=== PATIENT | female | born 1950 | race Caucasian/White ===

== ENCOUNTER 2018-07-09 07:56 | Day surgery (SDC) | payer MEDICARE, OTHER ==
[~2018-07-09 07:56] MED LIST: Acetaminophen TAB* 325 MG PO PRN; Buffered Lidocaine 1% SYRIN* 1 ML/SYRINGE INTRADERM ONE
[2018-07-09] MEDS ORDERED: Midazolam* 1 MG/ML 2 ML VIAL (2 MG) ONE ×2 (08:37→09:20)
[2018-07-09] MEDS ORDERED: fentaNYL* 50 MCG/ML 2 ML VIAL (100 MCG VIAL) ONE (08:37)
[2018-07-09 09:55] VITALS: BP 126/79
--- NOTE | 2018-07-09 10:35 | OP ---
DATE OF OPERATION: 07/09/18 - [facility] DATE OF : 46 SURGEON: Jim Carreon MD JAVA PER[employer]MANCE ENGINEER: None. PRE-OP DIAGNOSIS: Cataract with astigmatism, left eye. POST-OP DIAGNOSIS: Cataract with astigmatism, left eye. OPERATIVE PROCEDURE: Phacoemulsification cataract extraction with posterior chamber toric intraocular lens implant, left eye. COMPLICATIONS: None. BLOOD LOSS: None. ANESTHESIA: Topical with intravenous sedation. DESCRIPTION OF PROCEDURE: The patient was seen preoperatively in the holding area where she was placed in an upright position and a deysi was made at the 6 o' clock position of the limbus of the left eye with a marker. The patient was subsequently brought to the operating room. Here, she was given intravenous sedation as well as a drop of tetracaine to the left eye. The patient was prepped and draped in the usual sterile fashion for ophthalmic surgery and attention was directed to the left eye where a speculum was placed. A paracentesis was created at the 5 o'clock position and 0.1 cc of 1% preservative -free lidocaine was injected into the anterior chamber followed by DisCoVisc. The eye was digitally stabilized while a 2.75 mm keratome was used to create a triplanar clear corneal incision at the 3 o'clock position. A continuous curvilinear capsulorrhexis was created with a cystotome and Utrata forceps. BSS on the cannula was used to hydrodissect the lens from the capsule. Phacoemulsification was performed in a [id number] technique to create 4 fragments which were removed. Residual cortical material was removed with irrigation and aspiration. ProVisc was used to inflate the capsular bag and then create a pressure in the eye that was measurable by the tonometer as appropriate for the ORA machine. The ORA machine was employed and we made a lens recommendation. A small change was made to the original lens recommendation. An [id number] diopter lens was opened. It was inserted into the eye and dialed to the appropriate axial alignment of 86 degrees. The ORA was reemployed to confirm the axial rotation was correct. The lens was stabilized with a Sinskey hook for the paracentesis while irrigation and aspiration were performed to remove viscoelastic from the eye. BSS on the cannula was used to hydrate the corneal stroma and seal the wound. At the end of the case, the pupil was round and the lens was centered. The eye pressure appeared normal and the wound was water tight. The speculum was removed and topical Maxitrol ointment was placed on the surface of the eye. The eye was closed, patched, and shielded, and the patient was sent to recovery room in stable condition with postop instructions and followup appointment given. [id number] #: [id number] FLOR
[2018-07-09] MEDS ORDERED: Lidocaine 1%* 5 ML VIAL ONE (11:25)
[2018-07-09] MEDS ORDERED: Ketorolac 0.5% OPHTH (NF) 0.5 % 5 ML BTL ONE (11:25)
[2018-07-09] MEDS ORDERED: Neomycin/Polymy/Dex OPHTH.OIN* 3.5 GM ONE (11:25)
[2018-07-09] MEDS ORDERED: Tropicamide 1% OPTH.SOL* BTL ONE (11:25)
[2018-07-09] MEDS ORDERED: Cyclopentolate 1% OPTH.SOL* 2 ML BTL ONE (11:25)
[2018-07-09] MEDS ORDERED: Tetracaine 0.5% OPTH.SOL 4 ML* 1 DROP BTL ONE (11:25)
== END 2018-07-09 10:05 | disposition home or self-care (01) ==
LOC: OREAST 07:56
PROVIDERS: ATTEND Ophthalmology
DX: H25.12 Age-related nuclear cataract, left eye (principal); H52.202 Unspecified astigmatism, left eye; E78.5 Hyperlipidemia, unspecified; Z85.3 Personal history of malignant neoplasm of breast; E06.3 Autoimmune thyroiditis
CPT/HCPCS: A9270-GY; J2250; J3010; V2787

== ENCOUNTER 2022-10-14 14:06 | Inpatient (IN) ==
[2022-10-14] MEDS ORDERED: Ondansetron 4 mg VIAL 2 MG/ML 2 ml VIAL IV ONE (15:46)
[2022-10-14] MEDS ORDERED: Iodixanol (CONTRAST) 320 MG/ML 100 ML SDV IV ONE (15:56)
[2022-10-14 16:02] LABS: ABS Lymphocytes 0.8 10^3/uL (1.0-4.8); ABS Monocytes 0.6 10^3/uL (0.0-0.9); ABS Neutrophils 8.8 10^3/uL (1.5-7.6); ABS Nucleated RBC 0.02 10^3/ul; Eosinophil % 0.5 %; Hematocrit 41.4 % (35-45); Hemoglobin 14.5 g/dL (11.5-14.3); Lymphocyte % 7.9 %; Mean Corpuscular Hemoglobin 32.9 pg (27-33); Mean Corpuscular Hgb Conc 34.9 g/dL (31-36); Mean Corpuscular Volume 94.2 fL (80-97); Mean Platelet Volume 8.7 fL (7.5-11.2); Nucleated Red Blood Cells % 0.2 /100 WBC (0.0-0.4); Platelet Count 349 10^3/uL (150-450); Red Cell Distribution Width 12.5 % (12-17); White Blood Count 10.2 10^3/uL (3.8-11.8)
[2022-10-14 16:20] LABS: Albumin 4.4 g/dL (3.2-5.2); Albumin/Globulin Ratio 1.4 (1-3); C Reactive Protein 7.48 mg/L (<8.01); Calcium 9.8 mg/dL (8.6-10.3); Creatinine, Serum 0.77 mg/dL (0.51-0.95); Globulin 3.1 g/dL (2-4); Magnesium 2.1 mg/dL (1.9-2.7); Potassium 4.2 mmol/L (3.5-5.0); Total Bilirubin 0.7 mg/dL (0.2-1.0); Total Protein 7.5 g/dL (6.4-8.9); eGFR CKD-EPI 80.9 (>60)
[2022-10-14] MEDS ORDERED: Senna TAB 8.6 mg TAB PO PRN (22:46)
[2022-10-14] MEDS ORDERED: Magnesium Hydroxide LIQ 30 ML UDC PO PRN (22:46)
[2022-10-14] MEDS ORDERED: Morphine 2 MG/ML SYRINGE IV PRN (22:58)
[2022-10-14] MEDS ORDERED: Enoxaparin 40 MG/0.4 ML SYR SUBCUT SCH (23:00)
[2022-10-14] MEDS: oxyCODONE/Acetamin 5/325 mg TAB PO PRN (23:11)
[2022-10-15] MEDS: oxyCODONE/Acetamin 5/325 mg TAB PO PRN ×5 (02:38→21:39)
[2022-10-15] MEDS ORDERED: Ondansetron 4 mg VIAL 2 MG/ML 2 ml VIAL IV ONE (07:54)
[2022-10-15] MEDS ORDERED: Metoclopramide 5 MG/ML VIAL (10 mg) IV SLOW PU ONE (09:54)
[2022-10-15] MEDS ORDERED: Gadoteridol (CONTRAST) 279.3 MG/ML 10 ML IV ONE (10:51)
[2022-10-15] MEDS ORDERED: Dexamethasone IV 4 MG/ML VIAL 1 ml VIAL IV SLOW PU ONE (12:56)
[2022-10-15 16:49] LABS: Urine Appearance Clear; Urine Bilirubin Negative (Negative); Urine Blood Negative (Negative); Urine Color Yellow; Urine Glucose Negative (Negative); Urine Ketones 1+ (Negative); Urine Nitrite Negative (Negative); Urine Protein Negative (Negative); Urine Specific Gravity 1.034 (1.002-1.030); Urine Urobilinogen Negative (Negative)
[2022-10-15] MEDS: Polyethylene Glycol 3350 17 GM PACKET PO PRN (17:24)
[2022-10-15] MEDS ORDERED: Dexamethasone IV 4 MG/ML VIAL 1 ml VIAL IV SLOW PU SCH (19:30)
[2022-10-15] MEDS: Ondansetron 4 mg VIAL 2 MG/ML 2 ml VIAL IV PRN (21:29)
[2022-10-16] MEDS: Dexamethasone IV 4 MG/ML VIAL 1 ml VIAL IV SLOW PU SCH ×4 (03:58→21:35)
[2022-10-16] MEDS: oxyCODONE/Acetamin 5/325 mg TAB PO PRN ×2 (04:02→09:12)
[2022-10-16 06:14] LABS: ABS Lymphocytes 0.7 10^3/uL (1.0-4.8); ABS Monocytes 0.4 10^3/uL (0.0-0.9); ABS Neutrophils 7.5 10^3/uL (1.5-7.6); ABS Nucleated RBC 0.01 10^3/ul; Hematocrit 39.1 % (35-45); Hemoglobin 13.5 g/dL (11.5-14.3); Mean Corpuscular Hemoglobin 32.6 pg (27-33); Mean Corpuscular Hgb Conc 34.6 g/dL (31-36); Mean Platelet Volume 8.7 fL (7.5-11.2); Nucleated Red Blood Cells % 0.1 /100 WBC (0.0-0.4); Platelet Count 325 10^3/uL (150-450); Red Blood Count 4.16 10^6/uL (3.63-4.92); Red Cell Distribution Width 12.4 % (12-17); White Blood Count 8.6 10^3/uL (3.8-11.8)
[2022-10-16 06:38] LABS: Calcium 9.3 mg/dL (8.6-10.3); Creatinine, Serum 0.59 mg/dL (0.51-0.95); Potassium 3.7 mmol/L (3.5-5.0); eGFR CKD-EPI 94.5 (>60)
[2022-10-16] MEDS ORDERED: Buffered Lidocaine 1% SYRIN 1 ml INTRADERM ONE (08:30)
[2022-10-16] MEDS ORDERED: Midazolam 2 mg/2 ml VIAL 1 mg/ml 2 ml VIAL (2 mg) ONE (08:38)
[2022-10-16] MEDS ORDERED: Lidocaine 2% PF 5 ML VIAL ONE (08:38)
[2022-10-16] MEDS ORDERED: Propofol 10 MG/ML 20 ML BTL ONE (08:38)
[2022-10-16] MEDS ORDERED: fentaNYL 250 mcg/5 ml 50 MCG/ML 5 ml VIAL (250 MCG) ONE (08:38)
[2022-10-16] MEDS ORDERED: Rocuronium 50 mg VIAL 10 mg/ml 5 ml VIAL (50 mg) ONE ×2 (08:38→10:59)
[2022-10-16] MEDS ORDERED: Lactated Ringers 1000 ml BAG 1,000 ML IV SCH (09:00)
[2022-10-16] MEDS: Ondansetron 4 mg VIAL 2 MG/ML 2 ml VIAL IV PRN (09:04)
[2022-10-16] MEDS ORDERED: Glycopyrrolate IV 0.2 MG/ML 1 ML VIAL ONE (09:22)
[2022-10-16] MEDS ORDERED: Chlorhexidine MOUTHWASH 0.12% 15 ML UDC ONE (09:36)
[2022-10-16] MEDS ORDERED: Scopolamine 1 mg/72hr PATCH ONE (09:40)
[2022-10-16] MEDS: Scopolamine 1 mg/72hr PATCH TRANSDERM SCH (09:50)
[2022-10-16] MEDS ORDERED: HYDROmorphone 0.5 MG/0.5 ML SYRINGE ONE (11:03)
[2022-10-16] MEDS ORDERED: Ondansetron 4 mg VIAL 2 MG/ML 2 ml VIAL ONE (11:24)
[2022-10-16] MEDS ORDERED: Thrombin 5,000 UNITS 1 APPLIC KIT - topical use - TOPICAL ONE (11:33)
[2022-10-16] MEDS ORDERED: fentaNYL 100 mcg/2 ml 50 MCG/ML VIAL IV PRN (12:45)
[2022-10-16] MEDS ORDERED: Naloxone 0.4 mg VIAL 0.4 mg/ml 1 ml VIAL IV PRN (12:45)
[2022-10-16] MEDS ORDERED: Ondansetron 4 mg VIAL 2 MG/ML 2 ml VIAL IV PRN (12:45)
[2022-10-16] MEDS ORDERED: HYDROmorphone 1 MG/1 ML SYRINGE IV PRN (12:45)
[2022-10-16] MEDS ORDERED: Acetaminophen IV 1 GM/100ML 1,000 MG/100 ML BAG IV ONE (12:46)
[2022-10-16] MEDS ORDERED: oxyCODONE/Acetamin 5/325 mg TAB PO PRN (14:11)
[2022-10-16] MEDS ORDERED: LACTATED RINGERS 1000 ML BAG IV SCH (15:00)
[2022-10-16] MEDS: Polyethylene Glycol 3350 17 GM PACKET PO PRN (15:03)
[2022-10-16] MEDS: HYDROcodone/ACETAMIN 5/325 mg TAB PO PRN ×2 (17:26→21:34)
[2022-10-17] MEDS: Dexamethasone IV 4 MG/ML VIAL 1 ml VIAL IV SLOW PU SCH ×4 (04:13→21:57)
[2022-10-17 06:13] LABS: ABS Lymphocytes 0.4 10^3/uL (1.0-4.8); ABS Monocytes 0.8 10^3/uL (0.0-0.9); ABS Neutrophils 11.8 10^3/uL (1.5-7.6); Hematocrit 34.7 % (35-45); Lymphocyte % 3.4 %; Mean Corpuscular Hemoglobin 32.2 pg (27-33); Mean Corpuscular Hgb Conc 34.5 g/dL (31-36); Mean Corpuscular Volume 93.5 fL (80-97); Mean Platelet Volume 8.5 fL (7.5-11.2); Platelet Count 265 10^3/uL (150-450); Red Blood Count 3.71 10^6/uL (3.63-4.92); Red Cell Distribution Width 12.3 % (12-17)
[2022-10-17 06:28] LABS: Calcium 8.8 mg/dL (8.6-10.3); Creatinine, Serum 0.66 mg/dL (0.51-0.95); Magnesium 2.1 mg/dL (1.9-2.7); Potassium 4.2 mmol/L (3.5-5.0)
[2022-10-17] MEDS: HYDROcodone/ACETAMIN 5/325 mg TAB PO PRN ×2 (09:47→20:42)
[2022-10-17] MEDS: Polyethylene Glycol 3350 17 GM PACKET PO PRN (09:55)
[2022-10-17 15:00] LABS: Breast Carcinoma Ag(CA27.29) < 12.0 U/mL (<=38.0)
[2022-10-17] MEDS ORDERED: Sodium Phosphate ADULT ENEMA 133 ML BTL PR PRN (17:28)
[2022-10-17] MEDS: Senna TAB 8.6 mg TAB PO SCH (20:43)
[2022-10-17] MEDS: Magnesium Hydroxide LIQ 30 ML UDC PO SCH (21:18)
[2022-10-18] MEDS: Dexamethasone IV 4 MG/ML VIAL 1 ml VIAL IV SLOW PU SCH ×4 (05:06→22:20)
[2022-10-18] MEDS: Magnesium Hydroxide LIQ 30 ML UDC PO SCH ×2 (08:26→21:22)
[2022-10-18] MEDS: Polyethylene Glycol 3350 17 GM PACKET PO SCH (08:26)
[2022-10-18] MEDS: Enoxaparin 40 MG/0.4 ML SYR SUBCUT SCH (17:11)
[2022-10-18] MEDS: Senna TAB 8.6 mg TAB PO SCH (21:22)
[2022-10-19] MEDS: Dexamethasone IV 4 MG/ML VIAL 1 ml VIAL IV SLOW PU SCH ×2 (05:35→09:01)
[2022-10-19 06:24] LABS: ABS Lymphocytes 0.9 10^3/uL (1.0-4.8); ABS Monocytes 0.8 10^3/uL (0.0-0.9); ABS Neutrophils 7.5 10^3/uL (1.5-7.6); ABS Nucleated RBC 0.01 10^3/ul; Hematocrit 38.2 % (35-45); Hemoglobin 13.1 g/dL (11.5-14.3); Lymphocyte % 10.3 %; Mean Corpuscular Hemoglobin 32.3 pg (27-33); Mean Corpuscular Hgb Conc 34.4 g/dL (31-36); Mean Corpuscular Volume 93.9 fL (80-97); Mean Platelet Volume 8.6 fL (7.5-11.2); Nucleated Red Blood Cells % 0.1 /100 WBC (0.0-0.4); Platelet Count 263 10^3/uL (150-450); Red Blood Count 4.07 10^6/uL (3.63-4.92); Red Cell Distribution Width 12.4 % (12-17); White Blood Count 9.2 10^3/uL (3.8-11.8)
[2022-10-19 07:02] LABS: Creatinine, Serum 0.7 mg/dL (0.51-0.95); Magnesium 2.3 mg/dL (1.9-2.7); Potassium 3.9 mmol/L (3.5-5.0); eGFR CKD-EPI 90.7 (>60)
[2022-10-19] MEDS: Magnesium Hydroxide LIQ 30 ML UDC PO SCH (07:29)
[2022-10-19] MEDS: Polyethylene Glycol 3350 17 GM PACKET PO SCH (07:29)
[2022-10-19] MEDS: Scopolamine 1 mg/72hr PATCH TRANSDERM SCH (09:02)
[2022-10-19 10:50] LABS: Albumin/Globulin Ratio 0.86; Flag, M-protein Isotype Negative (Negative); Lambda Free Light Chain, S 1.74 mg/dL; Total Protein 6.4 g/dL (6.3 - 7.9)
[2022-10-19] MEDS ORDERED: Magnesium Hydroxide LIQ 30 ML UDC PO PRN (11:27)
[2022-10-19] MEDS ORDERED: Polyethylene Glycol 3350 17 GM PACKET PO PRN (11:27)
[2022-10-19] MEDS ORDERED: Iohexol 350 (CONTRAST) 500 ML MDV IV ONE (13:17)
[2022-10-19] MEDS: Enoxaparin 40 MG/0.4 ML SYR SUBCUT SCH (15:52)
[2022-10-19] MEDS: Senna TAB 8.6 mg TAB PO SCH (20:59)
[2022-10-20] MEDS ORDERED: Lidocaine 2% PF 5 ML VIAL INJ ONE (09:10)
[2022-10-20] MEDS: Enoxaparin 40 MG/0.4 ML SYR SUBCUT SCH (17:15)
[2022-10-20] MEDS: Senna TAB 8.6 mg TAB PO SCH (20:17)
[2022-10-21] MEDS: Enoxaparin 40 MG/0.4 ML SYR SUBCUT SCH (16:09)
[2022-10-21] MEDS: Senna TAB 8.6 mg TAB PO SCH (21:13)
[2022-10-22] MEDS: Scopolamine 1 mg/72hr PATCH TRANSDERM SCH (08:46)
[2022-10-22] MEDS: Enoxaparin 40 MG/0.4 ML SYR SUBCUT SCH (16:20)
[2022-10-22] MEDS: Senna TAB 8.6 mg TAB PO SCH (20:15)
[2022-10-23] MEDS: Enoxaparin 40 MG/0.4 ML SYR SUBCUT SCH (17:29)
[2022-10-23] MEDS: Senna TAB 8.6 mg TAB PO SCH (20:45)
[2022-10-24 09:55] VITALS: BP 112/75
[2022-10-24 16:47] LABS: Albumin 31.9 mg/24 h; Albumin/Globulin Ratio 0.13; Gamma Globulin 26.6 mg/24 h; Total Protein, 24 HR, U 266 mg/24 h (<229); Urine Volume 950 mL
== END 2022-10-24 09:20 | DRG 821 ==
LOC: ED 14:06 → EDHOLD 14:06 → SUATTDRO 20:04 → EDHOLD 22:01 → MEDTELE 22:22 → SUATTDRO 10-15 13:41 → SSU 10-16 13:30
PROVIDERS: ADMIT Student in an Organized Health Care Education/Training Program; ATTEND Hospitalist

== ENCOUNTER 2022-10-24 07:11 | Inpatient (IN) ==
[2022-10-24] MEDS ORDERED: Magnesium Hydroxide LIQ 30 ML UDC PO PRN (11:46)
[2022-10-24] MEDS ORDERED: HYDROcodone/ACETAMIN 5/325 mg TAB PO PRN (12:01)
[2022-10-24] MEDS: Enoxaparin 40 MG/0.4 ML SYR SUBCUT SCH (16:56)
[2022-10-24] MEDS: Senna TAB 8.6 mg TAB PO SCH (20:13)
[2022-10-25 06:42] LABS: ABS Eosinophils 0.1 10^3/uL (0.0-0.5); ABS Lymphocytes 0.9 10^3/uL (1.0-4.8); ABS Monocytes 0.9 10^3/uL (0.0-0.9); ABS Neutrophils 4.1 10^3/uL (1.5-7.6); Eosinophil % 1.4 %; Hematocrit 35.5 % (35-45); Hemoglobin 12.2 g/dL (11.5-14.3); Lymphocyte % 14.9 %; Mean Corpuscular Hgb Conc 34.4 g/dL (31-36); Mean Corpuscular Volume 95.8 fL (80-97); Mean Platelet Volume 8.6 fL (7.5-11.2); Platelet Count 203 10^3/uL (150-450); Red Cell Distribution Width 12.8 % (12-17); White Blood Count 5.9 10^3/uL (3.8-11.8)
[2022-10-25 06:57] LABS: Albumin 3.3 g/dL (3.2-5.2); Albumin/Globulin Ratio 1.2 (1-3); Calcium 8.9 mg/dL (8.6-10.3); Creatinine, Serum 0.61 mg/dL (0.51-0.95); Globulin 2.7 g/dL (2-4); Potassium 4.5 mmol/L (3.5-5.0); Total Bilirubin 0.7 mg/dL (0.2-1.0); eGFR CKD-EPI 93.8 (>60)
[2022-10-25] MEDS: Enoxaparin 40 MG/0.4 ML SYR SUBCUT SCH (17:12)
[2022-10-25] MEDS: Senna TAB 8.6 mg TAB PO SCH (20:51)
[2022-10-26] MEDS: Enoxaparin 40 MG/0.4 ML SYR SUBCUT SCH (17:24)
[2022-10-26] MEDS: Senna TAB 8.6 mg TAB PO SCH (21:00)
[2022-10-27] MEDS ORDERED: fentaNYL 100 mcg/2 ml 50 MCG/ML VIAL ONE (11:57)
[2022-10-27] MEDS: Enoxaparin 40 MG/0.4 ML SYR SUBCUT SCH (18:27)
[2022-10-27] MEDS: Senna TAB 8.6 mg TAB PO SCH (22:09)
[2022-10-28] MEDS: Enoxaparin 40 MG/0.4 ML SYR SUBCUT SCH (17:16)
[2022-10-28] MEDS: Senna TAB 8.6 mg TAB PO SCH (20:45)
[2022-10-29] MEDS: Enoxaparin 40 MG/0.4 ML SYR SUBCUT SCH (17:20)
[2022-10-29] MEDS: Senna TAB 8.6 mg TAB PO SCH (20:38)
[2022-10-30] MEDS: Enoxaparin 40 MG/0.4 ML SYR SUBCUT SCH (16:44)
[2022-10-30] MEDS: Senna TAB 8.6 mg TAB PO SCH (19:56)
[2022-10-31] MEDS: Enoxaparin 40 MG/0.4 ML SYR SUBCUT SCH (17:35)
[2022-10-31] MEDS: Senna TAB 8.6 mg TAB PO SCH (20:18)
[2022-11-01 06:29] LABS: ABS Lymphocytes 1.4 10^3/uL (1.0-4.8); ABS Monocytes 0.6 10^3/uL (0.0-0.9); ABS Neutrophils 4.7 10^3/uL (1.5-7.6); Eosinophil % 0.5 %; Hematocrit 36.3 % (35-45); Hemoglobin 12.7 g/dL (11.5-14.3); Lymphocyte % 20.3 %; Mean Corpuscular Hemoglobin 33.3 pg (27-33); Mean Corpuscular Volume 95.1 fL (80-97); Mean Platelet Volume 8.2 fL (7.5-11.2); Platelet Count 220 10^3/uL (150-450); Red Blood Count 3.82 10^6/uL (3.63-4.92); Red Cell Distribution Width 12.7 % (12-17); White Blood Count 6.8 10^3/uL (3.8-11.8)
[2022-11-01 06:45] LABS: Albumin 3.6 g/dL (3.2-5.2); Albumin/Globulin Ratio 1.5 (1-3); Creatinine, Serum 0.63 mg/dL (0.51-0.95); Globulin 2.4 g/dL (2-4); Potassium 3.9 mmol/L (3.5-5.0); Total Bilirubin 0.5 mg/dL (0.2-1.0)
[2022-11-01] MEDS: Enoxaparin 40 MG/0.4 ML SYR SUBCUT SCH (16:24)
[2022-11-01] MEDS: Senna TAB 8.6 mg TAB PO SCH (21:02)
[2022-11-02] MEDS: Enoxaparin 40 MG/0.4 ML SYR SUBCUT SCH (17:21)
[2022-11-02] MEDS: Senna TAB 8.6 mg TAB PO SCH (21:05)
[2022-11-03] MEDS: Enoxaparin 40 MG/0.4 ML SYR SUBCUT SCH (17:37)
[2022-11-03] MEDS: Senna TAB 8.6 mg TAB PO SCH (20:42)
[2022-11-04] MEDS: Enoxaparin 40 MG/0.4 ML SYR SUBCUT SCH (18:27)
[2022-11-04] MEDS: Senna TAB 8.6 mg TAB PO SCH (19:38)
[2022-11-05] MEDS: Enoxaparin 40 MG/0.4 ML SYR SUBCUT SCH (17:59)
[2022-11-05] MEDS: Senna TAB 8.6 mg TAB PO SCH (20:43)
[2022-11-06] MEDS: Enoxaparin 40 MG/0.4 ML SYR SUBCUT SCH (17:55)
[2022-11-06] MEDS: Senna TAB 8.6 mg TAB PO SCH (20:25)
[2022-11-07] MEDS: Enoxaparin 40 MG/0.4 ML SYR SUBCUT SCH (17:03)
[2022-11-07] MEDS: Senna TAB 8.6 mg TAB PO SCH (20:39)
[2022-11-08 06:44] LABS: ABS Monocytes 0.8 10^3/uL (0.0-0.9); ABS Neutrophils 5.5 10^3/uL (1.5-7.6); ABS Nucleated RBC 0.01 10^3/ul; Eosinophil % 0.3 %; Hematocrit 37.1 % (35-45); Hemoglobin 12.9 g/dL (11.5-14.3); Lymphocyte % 13.5 %; Mean Corpuscular Hemoglobin 33.1 pg (27-33); Mean Corpuscular Hgb Conc 34.7 g/dL (31-36); Mean Corpuscular Volume 95.6 fL (80-97); Mean Platelet Volume 8.8 fL (7.5-11.2); Nucleated Red Blood Cells % 0.1 /100 WBC (0.0-0.4); Platelet Count 179 10^3/uL (150-450); Red Blood Count 3.89 10^6/uL (3.63-4.92); Red Cell Distribution Width 13.2 % (12-17); White Blood Count 7.3 10^3/uL (3.8-11.8)
[2022-11-08 07:05] LABS: Albumin 3.6 g/dL (3.2-5.2); Potassium 3.7 mmol/L (3.5-5.0); Total Bilirubin 0.6 mg/dL (0.2-1.0)
[2022-11-08 07:11] LABS: Albumin/Globulin Ratio 1.8 (1-3); Creatinine, Serum 0.62 mg/dL (0.51-0.95); Total Protein 5.6 g/dL (6.4-8.9); eGFR CKD-EPI 93.4 (>60)
[2022-11-08] MEDS: Enoxaparin 40 MG/0.4 ML SYR SUBCUT SCH (16:57)
[2022-11-08] MEDS: Senna TAB 8.6 mg TAB PO SCH (20:50)
[2022-11-09] MEDS: Enoxaparin 40 MG/0.4 ML SYR SUBCUT SCH (16:26)
[2022-11-09] MEDS: Senna TAB 8.6 mg TAB PO SCH (20:34)
[2022-11-10] MEDS: Enoxaparin 40 MG/0.4 ML SYR SUBCUT SCH (18:29)
[2022-11-10] MEDS: Senna TAB 8.6 mg TAB PO SCH (20:17)
[2022-11-11] MEDS: Enoxaparin 40 MG/0.4 ML SYR SUBCUT SCH (17:05)
[2022-11-11] MEDS: Senna TAB 8.6 mg TAB PO SCH (20:08)
[2022-11-12] MEDS: Enoxaparin 40 MG/0.4 ML SYR SUBCUT SCH (17:38)
[2022-11-12] MEDS: Senna TAB 8.6 mg TAB PO SCH (20:13)
[2022-11-13] MEDS: Enoxaparin 40 MG/0.4 ML SYR SUBCUT SCH (17:25)
[2022-11-13] MEDS: Senna TAB 8.6 mg TAB PO SCH (20:45)
[2022-11-14 05:55] VITALS: BP 118/77
[2022-11-14 18:37] LABS: BLYM Referral Reason ? B-cell lymphoma; BLYM Result Summary Negative; BLYM Source skull; BLYM Tissue ID CN23-923-A
== END 2022-11-14 13:35 | disposition home or self-care (01) | DRG 26 ==
LOC: PMRU 10:33
PROVIDERS: ADMIT Physical Medicine & Rehabilitation; ATTEND Physical Medicine & Rehabilitation